=== PATIENT | male | born 1975 | race Caucasian/White ===

== ENCOUNTER 2020-03-18 17:27 | Emergency (ER) | payer OTHER ==
--- NOTE | 2020-03-18 18:02 | ER ---
Nurse's Notes [facility] Name: Russ Cross Age: 44 yrs Sex: Male : 1975 Arrival Date: 03/18/2020 Time: 17:36 Bed 8 Private MD: Diagnosis: Acute embolism and thrombosis of deep veins of lower extremity Presentation: 03/18 18:01 Chief complaint: Patient states: Was at hospital for outpatient US, DVT found in R ph lower leg, reports intermittent swelling to R ankle for approx 2 months, also reports slow wound healing to extremity, denies SOB or chest pain. Coronavirus screen: Patient denies a cough. Patient denies shortness of breath or difficulty breathing. Patient denies measured and/or subjective temperature greater than 100.4F prior to today's visit. Patient denies travel on a cruise ship or to a country the [facility] currently lists as an affected area. Patient denies contact with known and/or suspected case of COVID-19. Ebola Screen: No symptoms or risks identified at this time. Initial Sepsis Screen: Does the patient meet any 2 criteria? No. Patient's initial sepsis screen is negative. Does the patient have a suspected source of infection? No. Patient's initial sepsis screen is negative. Risk Assessment: Do you want to hurt yourself or someone else? Patient reports no desire to harm self or others. Onset of symptoms was March 18, 2020. 18:01 Method Of Arrival: Wheelchair 18:01 Acuity: MONTEZ 4 ph Triage Assessment: 18:03 General: Appears in no apparent distress. slender, well groomed, Behavior is calm, ph cooperative, appropriate for age, Denies fever, feeling ill. Pain: Denies pain. Neuro: Level of Consciousness is awake, alert, obeys commands, Oriented to person, place, time, situation. Cardiovascular: Denies chest pain, shortness of breath. Respiratory: Airway is patent Respiratory effort is even, unlabored, Respiratory pattern is regular, symmetrical. Derm: Skin is healthy with good turgor, Skin is pink, warm \T\ dry. Historical: - Allergies: 18:05 No Known Allergies; ph - Immunization history:: Adult Immunizations unknown. - Social history:: Smoking status: Patient reports the use of cigarette tobacco products, smokes one pack cigarettes per day. Screenin:03 Abuse screen: Denies threats or abuse. Denies injuries from another. Nutritional ph screening: No deficits noted. Tuberculosis screening: No symptoms or risk factors identified. Fall Risk None identified. Assessment: 18:47 Reassessment: Patient appears in no apparent distress at this time. Patient and/or ph family updated on plan of care and expected duration. Pain level reassessed. Patient is alert, oriented x 3, equal unlabored respirations, skin warm/dry/pink. Pt provided w/ prescription for Xarelto, instructed to follow up w/ PCP w/in 21 days for new prescription. Vital Signs: 18:00 BP 129 / 89; Pulse 58; Resp 18; Temp 97.9; Pulse Ox 99% on R/A; ph ED Course: 17:36 Patient arrived in ED. bd 17:36 Jerrell Patel PA is PHCP. jr8 17:36 Alex Ballesteros MD is Attending Physician. jr8 17:37 Megan Torre RN is Primary Nurse. ph 18:01 Christopher Paredes MD is Referral Physician. jr8 18:03 Triage completed. ph 18:04 Patient has correct armband on for positive identification. Bed in low position. Call ph light in reach. Side rails up X 1. Pulse ox on. NIBP on. Door closed. Noise minimized. 18:05 Arm band placed on Patient placed in an exam room. ph 18:05 No provider procedures requiring assistance completed. Initial lab(s) drawn, by la, ph sent to lab. Patient did not have IV access during this emergency room visit. Administered Medications: 18:48 Drug: Xarelto 15 mg Route: PO; ph 18:48 Follow up: Response: No adverse reaction; Medication administered at discharge. ph Outcome: 18:01 Discharge ordered by . jr8 18:48 Discharged to home via wheelchair. ph 18:48 Condition: good 18:48 Discharge instructions given to patient, Instructed on discharge instructions, follow up and referral plans. medication usage, Demonstrated understanding of instructions, follow-up care, medications, Prescriptions given X 1. 18:49 Patient left the ED. ph Signatures: Louise Rodríguez Josh, PA PA jr8 Megan Torre RN RN ph
--- NOTE | 2020-03-18 18:02 | EDPHYS ---
Physician Documentation [facility] Name: Russ Cross Age: 44 yrs Sex: Male : 1975 Arrival Date: 03/18/2020 Time: 17:36 Bed 8 Private MD: ED Physician Alex Ballesteros HPI: 03/18 17:38 This 44 yrs old Male presents to ER via Unassigned with complaints of left jr8 leg swelling . 17:38 The patient presents with swelling. The complaints affect the left ankle and distal jr8 calf. Onset: The symptoms/episode began/occurred gradually. Modifying factors: The symptoms are alleviated by nothing. the symptoms are aggravated by nothing. Associated signs and symptoms: The patient has no apparent associated signs or symptoms. Severity of symptoms: At their worst the symptoms were mild, in the emergency department the symptoms are unchanged. The patient has not experienced similar symptoms in the past. The patient has been recently seen by a physician:. Patient presented to ED after having outpatient US completed that was ordered by his pcp for swelling to left lower extremity. Stated that it has been gradual in nature over last week or two. Radiologist called ED to notify us of acute thrombus in the mid thigh region down to knee . Historical: - Allergies: 18:05 No Known Allergies; ph - Immunization history:: Adult Immunizations unknown. - Social history:: Smoking status: Patient reports the use of cigarette tobacco products, smokes one pack cigarettes per day. ROS: 17:38 Eyes: Negative for injury, pain, redness, and discharge, ENT: Negative for injury, jr8 pain, and discharge, Neck: Negative for injury, pain, and swelling, Cardiovascular: Negative for chest pain, palpitations, and edema, Respiratory: Negative for shortness of breath, cough, wheezing, and pleuritic chest pain, Abdomen/GI: Negative for abdominal pain, nausea, vomiting, diarrhea, and constipation, Back: Negative for injury and pain, Skin: Negative for injury, rash, and discoloration, Neuro: Negative for headache, weakness, numbness, tingling, and seizure. 17:38 MS/extremity: Positive for swelling, of the left leg. Exam: 17:38 Eyes: Pupils equal round and reactive to light, extra-ocular motions intact. Lids and jr8 lashes normal. Conjunctiva and sclera are non-icteric and not injected. Cornea within normal limits. Periorbital areas with no swelling, redness, or edema. ENT: Nares patent. No nasal discharge, no septal abnormalities noted. Tympanic membranes are normal and external auditory canals are clear. Oropharynx with no redness, swelling, or masses, exudates, or evidence of obstruction, uvula midline. Mucous membranes moist. Neck: Trachea midline, no thyromegaly or masses palpated, and no cervical lymphadenopathy. Supple, full range of motion without nuchal rigidity, or vertebral point tenderness. No Meningismus. Cardiovascular: Regular rate and rhythm with a normal S1 and S2. No gallops, murmurs, or rubs. Normal PMI, no JVD. No pulse deficits. Respiratory: Lungs have equal breath sounds bilaterally, clear to auscultation and percussion. No rales, rhonchi or wheezes noted. No increased work of breathing, no retractions or nasal flaring. Abdomen/GI: Soft, non-tender, with normal bowel sounds. No distension or tympany. No guarding or rebound. No evidence of tenderness throughout. Back: No spinal tenderness. No costovertebral tenderness. Full range of motion. Skin: Warm, dry with normal turgor. Normal color with no rashes, no lesions, and no evidence of cellulitis. Neuro: Awake and alert, GCS 15, oriented to person, place, time, and situation. Cranial nerves II-XII grossly intact. Motor strength 5/5 in all extremities. Sensory grossly intact. Cerebellar exam normal. Normal gait. 17:38 Musculoskeletal/extremity: Extremities: grossly normal except: noted in the left leg: Patient has mild erythema and swelling from the ankle to the distal portion of calf. No tenderness to palpation. Superficial venous engorgement noted when compared to non affected leg. Full ROM present with normal sensation. Pulses 2+ bilateral PT and DP. Rest of extremities unremarkable . Vital Signs: 18:00 BP 129 / 89; Pulse 58; Resp 18; Temp 97.9; Pulse Ox 99% on R/A; ph MDM: 17:36 Patient medically screened. [facility] 17:38 Data reviewed: vital signs, nurses notes, lab test result(s), radiologic studies, jr8 ultrasound, and as a result, I will discharge patient. Data interpreted: Pulse oximetry: on room air is 100 %. Interpretation: normal. Counseling: I had a detailed discussion with the patient and/or guardian regarding: the historical points, exam findings, and any diagnostic results supporting the discharge/admit diagnosis, lab results, radiology results, the need for outpatient follow up, a family practitioner, to return to the emergency department if symptoms worsen or persist or if there are any questions or concerns that arise at home. 03/18 17:36 Order name: CBC with Diff; Complete Time: :03/18 17:36 Order name: Basic Metabolic Panel; Complete Time: :03/18 17:36 Order name: Protime (+inr); Complete Time: :03/18 17:36 Order name: Ptt, Activated; Complete Time: : Administered Medications: 18:48 Drug: Xarelto 15 mg Route: PO; ph 18:48 Follow up: Response: No adverse reaction; Medication administered at discharge. ph Disposition: 18:53 Co-signature as Attending Physician, Alex Ballesteros MD. rn Disposition: 03/18/20 18:01 Discharged to Home. Impression: Acute embolism and thrombosis of deep veins of lower extremity. - Condition is Stable. - Discharge Instructions: Deep Vein Thrombosis. - Prescriptions for Xarelto 15 mg Oral Tablet - take 1 tablet by ORAL route 2 times per day for 21 days; 42 tablet. - Medication Reconciliation Form, Thank You Letter, Antibiotic Education, Prescription Opioid Use form. - Follow up: Christopher Paredes MD; When: 1 week; Reason: Recheck today's complaints, Continuance of care, Re-evaluation by your physician. - Problem is new. - Symptoms are unchanged. - Notes: Needs to f/u with Dr. Paredes for refil on Xarelto to start 20 mg QD dosage after the 21 day BID 15mg dosage Signatures: Dispatcher [employer] EDMS Alex Ballesteros MD MD rn Roszak, Josh, PA PA jr8 Megan Torre RN RN ph Corrections: (The following items were deleted from the chart) 18:49 18:01 03/18/2020 18:01 Discharged to Home. Impression: Acute embolism and thrombosis of ph deep veins of lower extremity. Condition is Stable. Discharge Instructions: Deep Vein Thrombosis. Prescriptions for Xarelto 15 mg Oral Tablet - take 1 tablet by ORAL route 2 times per day for 21 days; 42 tablet. and Forms are Medication Reconciliation Form, Thank You Letter, Antibiotic Education, Prescription Opioid Use. Follow up: Christopher Paredes; When: 1 week; Reason: Recheck today's complaints, Continuance of care, Re-evaluation by your physician. Problem is new. Symptoms are unchanged. jr8
[2020-03-18 18:12] LABS: Absolute Lymphocytes (CBC) 1.9 K/uL (0.7-4.9); Basophils % 0.2 % (0-1.3); Hematocrit 47.1 % (39.6-49.0); Lymphocytes % 25.1 % (15.3-44.8); MPV 7.4 fL (7.6-11.3); RBC Red Blood Cell Count 4.65 M/uL (4.33-5.43)
[2020-03-18] MEDS ORDERED: RIVAROXABAN 15 MG TABLET PO ONE (18:15)
[2020-03-18 18:16] LABS: Protime INR 0.96
[2020-03-18 18:40] LABS: Potassium 4.2 mmol/L (3.5-5.1)
[2020-03-18 19:48] VITALS: BP 129/89; TEMP 97.9; O2SAT 99
== END 2020-03-18 18:49 | disposition home or self-care (01) ==
LOC: ER 17:27
DX: I82.402 Acute embolism and thrombosis of unspecified deep veins of left lower extremity (principal); F17.210 Nicotine dependence, cigarettes, uncomplicated
CPT/HCPCS: 36415; 80048; 85025; 85610; 85730; 99284

== ENCOUNTER 2021-12-19 09:57 | Emergency (ER) | payer OTHER ==
[2021-12-19] MEDS ORDERED: MORPHINE 4 MG/ML SYR ONE (10:27)
[2021-12-19] MEDS ORDERED: NA CHLORIDE 0.9% 500 ML ONE (10:27)
[2021-12-19] MEDS ORDERED: ONDANSETRON 4 MG/2 ML VIAL ONE (10:27)
[2021-12-19 10:34] LABS: Absolute Lymphocytes (CBC) 1.5 K/uL (0.7-4.9); Hematocrit 44.5 % (39.6-49.0); Lymphocytes % 19.4 % (15.3-44.8); MPV 7.3 fL (7.6-11.3); RBC Red Blood Cell Count 4.45 M/uL (4.33-5.43)
[2021-12-19 10:50] LABS: Albumin 3.8 g/dL (3.4-5.0); Bilirubin Total 1.3 mg/dL (0.2-1.0); Protein, Total 7.6 g/dL (6.4-8.2)
--- NOTE | 2021-12-19 11:13 | RAD REPORT ---
EXAM DESCRIPTION: RAD - Lumbar Spine 3 Views - 12/19/2021 10:56 am CLINICAL HISTORY: PAIN COMPARISON: No comparisons FINDINGS: No acute fracture. No malalignment. Disc height loss at L5-S1. Minimal endplate spurring. IMPRESSION: No acute osseous abnormality involving the lumbar spine.
--- NOTE | 2021-12-19 11:40 | RAD REPORT ---
EXAM DESCRIPTION: US - Extremity Venous Uni Ltd - 12/19/2021 11:33 am CLINICAL HISTORY: Right-sided pain COMPARISON: None. TECHNIQUE: Real-time sonographic evaluation of the right lower extremity deep venous system was perf ormed. FINDINGS: Normal compressibility, flow augmentation, phasic flow and spontaneous flow is identified in the right lower extremity deep venous system. No intraluminal filling defects seen. IMPRESSION: No DVT in the right lower extremity.
--- NOTE | 2021-12-19 11:47 | ER ---
Nurse's Notes [facility] Name: Russ Cross Age: 46 yrs Sex: Male : 1975 Arrival Date: 12/19/2021 Time: 10:00 Bed 13 Private MD: Diagnosis: Unspecified symptoms and signs involving the musculoskeletal system-right hamstring Presentation: 12/19 10:06 Chief complaint: Patient states: "Monday I got this sharp pain in my R hip that went to ab2 my knee and now it just feels like there is a knot behind me knee. I have a blood clot in my left leg right now and im taking Xarelto and this feels similar.". Coronavirus screen: Vaccine status: Patient reports being unvaccinated. Client denies travel out of the [place] in the last 14 days. At this time, the client does not indicate any symptoms associated with coronavirus-19. Ebola Screen: Patient negative for fever greater than or equal to 101.5 degrees Fahrenheit, and additional compatible Ebola Virus Disease symptoms Patient denies exposure to infectious person. Patient denies travel to an Ebola-affected area in the 21 days before illness onset. No symptoms or risks identified at this time. Initial Sepsis Screen: Does the patient meet any 2 criteria? No. Patient's initial sepsis screen is negative. Does the patient have a suspected source of infection? No. Patient's initial sepsis screen is negative. Risk Assessment: Do you want to hurt yourself or someone else? Patient reports no desire to harm self or others. Onset of symptoms is unknown. 10:06 Method Of Arrival: Ambulatory ab2 10:06 Acuity: MONTEZ 3 ab2 Triage Assessment: 10:08 General: Appears in no apparent distress. uncomfortable, Behavior is calm, cooperative, ab2 appropriate for age. Pain: Complains of pain in right leg. Neuro: No deficits noted. Level of Consciousness is awake, alert, obeys commands, Oriented to person, place, time, situation, Appropriate for age Horticulture Supervisor are equal bilaterally Moves all extremities. Gait is steady. Cardiovascular: No deficits noted. Denies chest pain, shortness of breath. Respiratory: No deficits noted. Airway is patent Respiratory effort is even, unlabored, Respiratory pattern is regular, symmetrical. GI: No deficits noted. Musculoskeletal: Reports pain in right leg. Historical: - Allergies: 10:08 No Known Allergies; ab2 - PMHx: 10:08 Blood Clot; ab2 - Immunization history:: Adult Immunizations up to date. - Social history:: Smoking status: Patient reports the use of cigarette tobacco products, smokes one pack cigarettes per day. - Family history:: not pertinent. Screenin:09 Abuse screen: Denies threats or abuse. Denies injuries from another. Nutritional ab2 screening: No deficits noted. Tuberculosis screening: No symptoms or risk factors identified. Fall Risk None identified. Assessment: 10:10 General: SEE TRIAGE NOTE. bp 11:15 Reassessment: No changes from previously documented assessment. Patient and/or family bp updated on plan of care and expected duration. Pain level reassessed. PT RETURNED FROM XRAY. U/S PENDING. 11:21 Reassessment: U/S AT B/S. bp 12:16 Reassessment: PT D/C HOME AMBULATORY ON CRUTCHES, DX WITH HAMSTRING PAIN. bp Vital Signs: 10:06 BP 132 / 86; Pulse 74; Resp 17; Temp 98.1(O); Pulse Ox 98% on R/A; Weight 90.72 kg; ab2 Height 6 ft. 4 in. (193.04 cm); Pain 8/10; 11:15 BP 112 / 80; Pulse 53; Resp 16; Pulse Ox 99% ; bp 12:16 BP 111 / 79; Pulse 52; Resp 16; Pulse Ox 96% ; bp 10:06 Body Mass Index 24.34 (90.72 kg, 193.04 cm) ab2 ED Course: 10:00 Patient arrived in ED. mr 10:03 Harrison Quach MD is Attending Physician. shikha 10:08 Triage completed. ab2 10:08 Arm band placed on right wrist. ab2 10:09 Patient has correct armband on for positive identification. Bed in low position. Call ab2 light in reach. Side rails up X2. Adult w/ patient. 10:09 No provider procedures requiring assistance completed. ab2 10:13 Sridhar Ackerman, BLADIMIR is Primary Nurse. bp 10:15 Initial lab(s) drawn, by me, sent to lab. Inserted saline lock: 20 gauge in right kj1 antecubital area, using aseptic technique. Blood collected. 10:57 Lumbar Spine (3 Views) XRAY In Process Unspecified. EDMS 11:35 US Extremity Venous Unilateral Ltd In Process Unspecified. EDMS 11:47 Jatin Andrade MD is Referral Physician. shikha 12:16 IV discontinued, intact, bleeding controlled, No redness/swelling at site. Pressure bp dressing applied. Administered Medications: 10:28 Drug: NS 0.9% 500 ml Route: IV; Rate: bolus; Site: right antecubital; bp 10:28 Drug: morphine 2 mg Route: IVP; Site: right antecubital; bp 10:51 Follow up: Response: Pain is decreased bp 10:28 Drug: morphine 2 mg Route: IVP; Site: right antecubital; bp 10:28 Drug: Zofran (Ondansetron) 4 mg Route: IVP; Site: right antecubital; bp 10:51 Follow up: Response: No adverse reaction bp Outcome: 11:47 Discharge ordered by MD. shikha 12:16 Discharged to home ambulatory, with crutches, with family. bp 12:16 Condition: stable 12:16 Discharge instructions given to patient, family, Instructed on discharge instructions, follow up and referral plans. medication usage, crutch walking, Demonstrated understanding of instructions, follow-up care, medications, crutch walking, Prescriptions given X 1. 12:17 Patient left the ED. bp Signatures: Dispatcher [employer] Harrison Villaseñor MD MD cha Rivera, Mary mr Peltier, Brian, RN RN Debra Bonilla kj1 Hector Greco2
--- NOTE | 2021-12-19 11:47 | EDPHYS ---
Physician Documentation [facility] Name: Russ Cross Age: 46 yrs Sex: Male : 1975 Arrival Date: 12/19/2021 Time: 10:00 Bed 13 Private MD: ED Physician Harrison Quach HPI: 12/19 10:23 This 46 yrs old Male presents to ER via Ambulatory with complaints of Leg shikha Pain. 10:23 The patient presents with decreased range of motion, pain, that is acute. The shikha complaints affect the right hamstring. Context: The problem was sustained at an unknown site, resulted from an unknown cause. Onset: The symptoms/episode began/occurred 2 day(s) ago. Modifying factors: The symptoms are alleviated by elevating leg, remaining still, the symptoms are aggravated by movement. Associated signs and symptoms: The patient has no apparent associated signs or symptoms. Severity of symptoms: At their worst the symptoms were moderate. The patient has not experienced similar symptoms in the past. Historical: - Allergies: 10:08 No Known Allergies; ab2 - PMHx: 10:08 Blood Clot; ab2 - Immunization history:: Adult Immunizations up to date. - Social history:: Smoking status: Patient reports the use of cigarette tobacco products, smokes one pack cigarettes per day. - Family history:: not pertinent. ROS: 10:23 Constitutional: Negative for fever, chills, and weight loss, Eyes: Negative for injury, shikha pain, redness, and discharge, ENT: Negative for injury, pain, and discharge, Neck: Negative for injury, pain, and swelling, Cardiovascular: Negative for chest pain, palpitations, and edema, Respiratory: Negative for shortness of breath, cough, wheezing, and pleuritic chest pain, Abdomen/GI: Negative for abdominal pain, nausea, vomiting, diarrhea, and constipation, Back: Negative for injury and pain, : Negative for injury, bleeding, discharge, and swelling, Skin: Negative for injury, rash, and discoloration, Neuro: Negative for headache, weakness, numbness, tingling, and seizure, Psych: Negative for depression, anxiety, suicide ideation, homicidal ideation, and hallucinations, Allergy/Immunology: Negative for hives, rash, and allergies, Endocrine: Negative for neck swelling, polydipsia, polyuria, polyphagia, and marked weight changes, Hematologic/Lymphatic: Negative for swollen nodes, abnormal bleeding, and unusual bruising. 10:23 MS/extremity: Positive for decreased range of motion, pain, tenderness, of the right hamstring. Exam: 10:23 Constitutional: This is a well developed, well nourished patient who is awake, alert, shikha and in no acute distress. Head/Face: Normocephalic, atraumatic. Eyes: Pupils equal round and reactive to light, extra-ocular motions intact. Lids and lashes normal. Conjunctiva and sclera are non-icteric and not injected. Cornea within normal limits. Periorbital areas with no swelling, redness, or edema. ENT: Nares patent. No nasal discharge, no septal abnormalities noted. Tympanic membranes are normal and external auditory canals are clear. Oropharynx with no redness, swelling, or masses, exudates, or evidence of obstruction, uvula midline. Mucous membranes moist. Neck: Trachea midline, no thyromegaly or masses palpated, and no cervical lymphadenopathy. Supple, full range of motion without nuchal rigidity, or vertebral point tenderness. No Meningismus. Chest/axilla: Normal chest wall appearance and motion. Nontender with no deformity. No lesions are appreciated. Cardiovascular: Regular rate and rhythm with a normal S1 and S2. No gallops, murmurs, or rubs. Normal PMI, no JVD. No pulse deficits. Respiratory: Lungs have equal breath sounds bilaterally, clear to auscultation and percussion. No rales, rhonchi or wheezes noted. No increased work of breathing, no retractions or nasal flaring. Abdomen/GI: Soft, non-tender, with normal bowel sounds. No distension or tympany. No guarding or rebound. No evidence of tenderness throughout. Back: No spinal tenderness. No costovertebral tenderness. Full range of motion. Skin: Warm, dry with normal turgor. Normal color with no rashes, no lesions, and no evidence of cellulitis. Neuro: Awake and alert, GCS 15, oriented to person, place, time, and situation. Cranial nerves II-XII grossly intact. Motor strength 5/5 in all extremities. Sensory grossly intact. Cerebellar exam normal. Normal gait. Psych: Awake, alert, with orientation to person, place and time. Behavior, mood, and affect are within normal limits. 10:23 Musculoskeletal/extremity: Circulation is intact in all extremities. Sensation intact. Compartment Syndrome exam of affected extremity: is normal. Weight bearing: able to fully bear weight, DVT Exam: no swelling, negative Homans' sign noted on exam, no appreciated bluish discoloration, no erythema, no increased warmth, pain, tenderness. Vital Signs: 10:06 BP 132 / 86; Pulse 74; Resp 17; Temp 98.1(O); Pulse Ox 98% on R/A; Weight 90.72 kg; ab2 Height 6 ft. 4 in. (193.04 cm); Pain 8/10; 11:15 BP 112 / 80; Pulse 53; Resp 16; Pulse Ox 99% ; bp 12:16 BP 111 / 79; Pulse 52; Resp 16; Pulse Ox 96% ; bp 10:06 Body Mass Index 24.34 (90.72 kg, 193.04 cm) ab2 MDM: 10:03 Patient medically screened. [facility] 10:23 Differential diagnosis: contusion. Data reviewed: vital signs, nurses notes, lab test [facility] result(s), radiologic studies, doppler. Data interpreted: traffic monitor specialist: rate is 74 beats/min, Pulse oximetry: on. Counseling: I had a detailed discussion with the patient and/or guardian regarding: the historical points, exam findings, and any diagnostic results supporting the discharge/admit diagnosis, lab results, radiology results, the need for outpatient follow up, a family practitioner, a orthopedic surgeon. 12/19 10:21 Order name: CBC with Diff; Complete Time: 11:27 [facility] 12/19 10:21 Order name: Comprehensive Metabolic Panel; Complete Time: 11: [facility] 12/19 10:21 Order name: US Extremity Venous Unilateral Ltd; Complete Time: 11:46 [facility] 12/19 10:21 Order name: Lumbar Spine (3 Views) XRAY; Complete Time: 11: [facility] 12/19 11:46 Order name: Crutch Training; Complete Time: 12:16 [facility] Administered Medications: 10:28 Drug: NS 0.9% 500 ml Route: IV; Rate: bolus; Site: right antecubital; bp 10:28 Drug: morphine 2 mg Route: IVP; Site: right antecubital; bp 10:51 Follow up: Response: Pain is decreased bp 10:28 Drug: morphine 2 mg Route: IVP; Site: right antecubital; bp 10:28 Drug: Zofran (Ondansetron) 4 mg Route: IVP; Site: right antecubital; bp 10:51 Follow up: Response: No adverse reaction bp Disposition Summary: 12/19/21 11:47 Discharge Ordered Location: Home shikha Problem: new shikha Symptoms: have improved shikha Condition: Stable shikha Diagnosis - Unspecified symptoms and signs involving the musculoskeletal system - right shikha hamstring Followup: shikha - With: Private Physician - When: 2 - 3 days - Reason: Recheck today's complaints, Continuance of care, Re-evaluation by your physician Followup: shikha - With: - When: 2 - 3 days - Reason: Recheck today's complaints, Re-evaluation by your physician Discharge Instructions: - Discharge Summary Sheet shikha - Musculoskeletal Pain shikha Forms: - Medication Reconciliation Form shikha - Thank You Letter shikha - Antibiotic Education shikha - Prescription Opioid Use shikha Prescriptions: - Tylenol-Codeine #3 300 mg-30 mg Oral - take 2 tablet by ORAL route every 6 hours; 20 tablet; Refills: 0, Product shikha Selection Permitted Signatures: Dispatcher [employer] Harrison Villaseñor MD MD cha Peltier, Brian, RN RN Hector Bustamante
[2021-12-19 12:26] VITALS: TEMP 98.1
[2021-12-19 12:28] VITALS: BP 111/79; O2SAT 96
== END 2021-12-19 12:17 | disposition home or self-care (01) ==
LOC: ER 09:57
DX: R29.91 Unspecified symptoms and signs involving the musculoskeletal system (principal); F17.210 Nicotine dependence, cigarettes, uncomplicated
CPT/HCPCS: 85025; 36415; 80053; 72100; 93971; 96375; 96374; 99284; J7040; J2405